=== PATIENT | female | born 1970 | race Caucasian/White ===

== ENCOUNTER 2020-05-02 19:44 | Emergency (ER) | payer MEDICAID, OTHER ==
[~2020-05-02] VITALS: Ht 170.2 cm; Wt 70.3 kg
[2020-05-02 19:48] VITALS: BP 180/109
[2020-05-02] MEDS ORDERED: cloNIDine HCL 0.1 MG TAB PO ONE (20:15)
== END 2020-05-02 20:51 | disposition left against medical advice (07) ==
LOC: ER 19:44
DX: I16.0 Hypertensive urgency (principal)